=== PATIENT | female | born 1965 | race Caucasian/White ===

== ENCOUNTER 2017-08-16 17:33 | Emergency (ER) | payer BC ==
[2017-08-16 17:49] VITALS: BP 120/68
--- NOTE | 2017-08-16 17:54 | EDM.PDOC ---
ED HPI GENERAL MEDICAL PROBLEM - General Chief Complaint: Upper Extremity Injury/Pain Stated Complaint: FELL AND HURT L WRIST/ARM Time Seen by Provider: 08/16/17 17:49 Source of Information: Reports: Patient History Limitations: Reports: No Limitations - History of Present Illness INITIAL COMMENTS - FREE TEXT/NARRATIVE: 52-year-old female presents to the ED for evaluation of increasing pain dorsal hand wrist and forearm on the left side after she fell 2 days ago. She states she was walking into a convenience store and tripped over the cell which propelled her for words right in front of the door. She believes she landed more on an outstretched left hand but struck her hand dorsally on sidewall of the door. She's been babying it and taking large doses of Advil since time of injury but today the pain seems to be getting worse. His rating up the forearm towards the elbow and her shoulder. She did not strike her head or lose consciousness. She did bang up both of her knees but she consider disease minor injuries and she can walk normally.denies any injuries to her chest wall. 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 Left Arm Pain Score (Numeric/FACES): 5 - Related Data Allergies Allergy/AdvReac Type Severity Reaction Status Date / Time celecoxib [From Celebrex] Allergy Rash Verified 08/16/17 17:46 Sulfa (Sulfonamide Allergy Hives Verified 08/16/17 17:46 Antibiotics) Home Meds: Home Meds oxyCODONE HCl/Acetaminophen [Percocet 5-325 mg Tablet] 1 - 2 each PO Q4H PRN # 16 tablet 08/16/17 [Rx] Past Medical History Gastrointestinal History: Reports: Cholelithiasis, Diverticulosis - Past Surgical History GI Surgical History: Reports: Cholecystectomy, Other (See Below) Musculoskeletal Surgical History: Reports: Other (See Below) (she had open or thought arthrotomy left knee for repair of a medial meniscal tear. Subsequently had open reduction internal fixation of a fractured tibia same leg.) Social & Family History - Tobacco Use Smoking Status *Q: Never Smoker - Caffeine Use Caffeine Use: Reports: None - Recreational Drug Use Recreational Drug Use: No - Living Situation & Occupation Living situation: Reports: Occupation: Employed Review of Systems - Review of Systems Review Of Systems: See Below Constitutional: Reports: No Symptoms Eyes: Reports: No Symptoms Ears: Reports: No Symptoms Nose: Reports: No Symptoms Mouth/Throat: Reports: No Symptoms Respiratory: Reports: No Symptoms Cardiovascular: Reports: No Symptoms GI/Abdominal: Reports: No Symptoms Genitourinary: Reports: No Symptoms Musculoskeletal: Reports: Arm Pain (left side forearm and wrist pain), Hand Pain (left side) Skin: Reports: Bruising, Rash (superficial abrasions to the dorsal hand wrist and forearm) Neurological: Reports: No Symptoms Psychiatric: Reports: No Symptoms ED EXAM, GENERAL - Physical Exam Exam: See Below Exam Limited By: No Limitations General Appearance: Alert, WD/WN, No Apparent Distress Neck: Normal Inspection, Supple, Non-Tender, Full Range of Motion. No: Lymphadenopathy (L), Lymphadenopathy (R) Peripheral Pulses: 2+: Radial (L) Extremities: Other (examination was limited to the left upper extremity. She has abrasions to the dorsal aspect of her hand with bruising particularly over the third and fourth metacarpals. This extends over the dorsal wrist crease and involves the distal aspect of her forearm as well. It appears that it was slammed against the side of the door when she fell. A full fist but she has pain on extension of the wrist.she has superficial abrasions to the left lateral knee without any true joint effusions.) Neurological: Alert, Oriented, CN II-XII Intact, Normal Cognition, Normal Gait Psychiatric: Normal Affect Skin Exam: Warm, Dry, Intact, Normal Color, No Rash Course - Vital Signs Last Recorded V/S: Last Vital Signs Temp 36.5 C 08/16/17 17:46 Pulse 65 08/16/17 17:46 Resp BP 120/68 08/16/17 17:46 Pulse Ox 100 08/16/17 17:46 - Orders/Labs/Meds Orders: Active Orders 24 hr Category Date Time Status Forearm 2V Lt [CR] Stat Exams 08/16/17 17:50 Ordered Hand Comp Min 3V Lt [CR] Stat Exams 08/16/17 17:49 Ordered - Radiology Interpretation Free Text/Narrative:: 52-year-old female presents the ED for evaluation of injuries to her left dorsal hand wrist and forearm that occurred from a fall 2 days ago. She tripped and over a concrete ledge and fell outside a convenience store striking the left hand on the cement and on the edge of the door frame. She felt initially she didn't break any bones but pain is increased over the last 48 hours likely due to soft tissue swelling. Also mobility or range of motion has decreased because of pain. Particular dorsal aspect of the hand and wrist. She has full pronation supination at the elbow. She has some pain on movement of the shoulder but she has full abduction and no evidence that she has torn rotator cuff. Plan x-ray of the hand and forearm will be obtained. - Re-Assessments/Exams Free Text/Narrative Re-Assessment/Exam: 08/16/17 18:20 x-rays of the left hand and forearm have been completed and are found to be within normal limits with no evidence of any bony injuries. Injuries are to the soft tissues i.e. muscles of the forearm and tendons over the dorsal aspect of the hand and wrist. Jesús wrap applied to help immobilize the wrist. She may apply heat to the area now since its 2 days postinjury and continue anti-inflammatories as needed for pain relief.she states taking quite bad at nighttime in different with her sleep. I therefore did give her 16 tablets of Percocet 5/3/25 milligrams strength one tablet every 6 hours as needed for pain relief primarily at bedtime and on an as-needed basis.follow-up with personal physician if not completely back to normal in 12-14 days time Departure - Departure Time of Disposition: 18:25 Disposition: Home, Self-Care 01 Condition: Fair Clinical Impression: Contusion of forearm, left Qualifiers: Encounter type: initial encounter Qualified Code(s): S50.12XA - Contusion of left forearm, initial encounter Contusion of multiple sites of left hand and wrist Qualifiers: Encounter type: initial encounter Qualified Code(s): S60.222A - Contusion of left hand, initial encounter - Discharge Information Prescriptions: oxyCODONE HCl/Acetaminophen [Percocet 5-325 mg Tablet] 1 - 2 each PO Q4H PRN # 16 tablet PRN Reason: pain relief. Referrals: Myah Barraza PA-C [Primary Care Provider] - Forms: ED Department Discharge Additional Instructions: evaluation the emergent today in regards to blunt force trauma to the left dorsal hand wrist and forearm that occurred from a fall 2 days ago. There is obvious swelling of the mid forearm with bruising as well as abrasions to the dorsal hand and bruising over the wrist. X-rays of the left hand wrist and forearm were obtained and did not reveal any bony injuries or fractures. Injuries are to the surrounding muscles and tendons in the forearm and wrist area from the fall. Usually bleeding into the soft tissues occurs 48 hours after injury and then slowly starts to resolve. Usually we advised ice for the first 48 hours and after this may apply heat to the area for one half hour out of every 4 hours to help the blot body. The blood out of the soft tissues. At this time I would advise continuing either Aleve 2 tablets every 8 hours or Motrin 600 mg every 6 hours as needed for pain /inflamation relief.may use Percocet tablets usually 1 tablet with 600 mg of Motrin every 6 hours will control pain better particularly nighttime date sleep. Expect gradual improvement over the next 7-10 days as the blood comes out of the soft tissues in the inflammation settles down. Follow-up with personal physician if not completely back to normal in 10-14 days time - My Orders Last 24 Hours: My Active Orders 08/16/17 17:49 Hand Comp Min 3V Lt [CR] Stat 08/16/17 17:50 Forearm 2V Lt [CR] Stat - Assessment/Plan Last 24 Hours: My Active Orders 08/16/17 17:49 Hand Comp Min 3V Lt [CR] Stat 08/16/17 17:50 Forearm 2V Lt [CR] Stat
--- NOTE | 2017-08-17 09:10 | CR ---
Left hand: Four views of the left hand were obtained. Comparison: No previous hand study. Joint spaces are preserved. Small cysts are scattered within the carpal bones which are felt to be incidental. No acute fracture, dislocation or other bony abnormality is seen. Impression: 1. Incidental findings. Nothing acute is appreciated on left hand study. Diagnostic code #2
--- NOTE | 2017-08-17 09:10 | CR ---
Left forearm: Two views of the left forearm were obtained. No fracture or other bony abnormality is seen. Impression: 1. No abnormality is identified on two-view left forearm study. Diagnostic code #1
== END 2017-08-16 18:31 | disposition home or self-care (01) ==
LOC: JD.ED 17:33
DX: S50.12XA Contusion of left forearm, initial encounter (principal); S60.222A Contusion of left hand, initial encounter; Z88.2 Allergy status to sulfonamides; Z88.8 Allergy status to other drugs, medicaments and biological substances; W01.0XXA Fall on same level from slipping, tripping and stumbling without subsequent striking against object, initial encounter
CPT/HCPCS: 73090-26-LT; 73090-LT; 73130-26-LT; 73130-LT; 99284

== ENCOUNTER 2018-12-25 11:14 | Emergency (ER) | payer BC ==
[2018-12-25 11:31] VITALS: BP 137/70
[2018-12-25] MEDS ORDERED: Sodium Chloride 0.9% 10 ML Syringe FLUSH PRN (11:41)
[2018-12-25] MEDS ORDERED: Ketorolac 30 MG/ML SDV IVPUSH ONE (11:42)
[2018-12-25] MEDS ORDERED: diphenhydrAMINE 50 MG/ML SDV IVPUSH ONE (11:42)
[2018-12-25] MEDS ORDERED: Prochlorperazine 10 MG/2 ML SDV IVPUSH ONE (11:42)
[2018-12-25] MEDS ORDERED: HYDROmorphone 1 MG/ML Syringe IVPUSH ONE (12:47)
--- NOTE | 2018-12-25 12:54 | EDM.PDOC ---
ED HPI GENERAL MEDICAL PROBLEM - General Chief Complaint: Headache Stated Complaint: HEADACHE Time Seen by Provider: 12/25/18 11:30 Source of Information: Reports: Patient History Limitations: Reports: No Limitations - History of Present Illness INITIAL COMMENTS - FREE TEXT/NARRATIVE: The patient presents with a headache. She has a history of migraines and she woke up at 6am and this started. She is nauseated. She has no fever but she has chills. She has no photophobia. She has no chest pain or shortness of breath. She has no abdominal pain. Onset: Gradual Duration: Hour(s): Location: Reports: Head Quality: Reports: Sharp Severity: Severe Improves with: Reports: None Worsens with: Reports: None Associated Symptoms: Reports: Headaches, Nausea/Vomiting. Denies: Chest Pain, Cough, Fever/Chills, Shortness of Breath Frontal Headache Pain Score (Numeric/FACES): 10 - Related Data Allergies Allergy/AdvReac Type Severity Reaction Status Date / Time celecoxib [From Celebrex] Allergy Rash Verified 08/16/17 17:46 Sulfa (Sulfonamide Allergy Hives Verified 08/16/17 17:46 Antibiotics) sulfamethoxazole Allergy Rash Verified 12/25/18 11:31 [From Bactrim] trimethoprim [From Bactrim] Allergy Rash Verified 12/25/18 11:31 Home Meds: Home Meds Levothyroxine Sodium [Synthroid] 100 mcg PO DAILY 12/25/18 [History] Sertraline [Zoloft] 100 mg PO BEDTIME 12/25/18 [History] Topiramate [Topamax] 50 mg PO DAILY 12/25/18 [History] Topiramate [Topamax] 100 mg PO BEDTIME 12/25/18 [History] Past Medical History Gastrointestinal History: Reports: Cholelithiasis, Diverticulosis Neurological History: Reports: Migraines Psychiatric History: Reports: Depression Endocrine/Metabolic History: Reports: Hypothyroidism - Past Surgical History GI Surgical History: Reports: Cholecystectomy, Other (See Below) Musculoskeletal Surgical History: Reports: Other (See Below) Social & Family History - Tobacco Use Smoking Status *Q: Never Smoker - Caffeine Use Caffeine Use: Reports: None - Recreational Drug Use Recreational Drug Use: No - Living Situation & Occupation Living situation: Reports: Occupation: Employed ED ROS GENERAL - Review of Systems Review Of Systems: See Below Constitutional: Reports: No Symptoms HEENT: Reports: No Symptoms Respiratory: Reports: No Symptoms Cardiovascular: Reports: No Symptoms Endocrine: Reports: No Symptoms GI/Abdominal: Reports: Nausea. Denies: Abdominal Pain, Vomiting : Reports: No Symptoms Musculoskeletal: Reports: No Symptoms Neurological: Reports: Headache - Physical Exam Exam: See Below Exam Limited By: No Limitations General Appearance: Alert, No Apparent Distress Ears: Normal External Exam Nose: Normal Inspection Head Exam: Atraumatic, Normocephalic Neck: Normal Inspection, Supple, Non-Tender Respiratory/Chest: No Respiratory Distress, Lungs Clear, Normal Breath Sounds Cardiovascular: Regular Rate, Rhythm, No Edema, No Murmur GI/Abdominal: Soft, Non-Tender, No Organomegaly, No Mass Neuro Exam (Abbreviated): Alert, Oriented, No Motor/Sensory Deficits Course - Vital Signs Last Recorded V/S: Last Vital Signs Temp 98.7 F 12/25/18 11:29 Pulse 66 12/25/18 11:29 Resp 16 12/25/18 11:29 BP 137/70 12/25/18 11:29 Pulse Ox 100 12/25/18 11:29 - Orders/Labs/Meds Orders: Active Orders 24 hr Category Date Time Status Peripheral IV Care [RC] . DIRECTED Care 12/25/18 11:42 Active Sodium Chloride 0.9% [Saline Flush] Med 12/25/18 11:41 Active 10 ml FLUSH ASDIRECTED PRN Peripheral IV Insertion Adult [OM.PC] Routine Oth 12/25/18 11:41 Ordered Medication Orders Sodium Chloride (Saline Flush) 10 ml FLUSH ASDIRECTED PRN PRN Reason: Keep Vein Open Last Admin: 12/25/18 11:54 Dose: 10 ml Meds: Medications Generic Name Dose Route Start Last Admin Trade Name Freq PRN Reason Stop Dose Admin Sodium Chloride 10 ml 12/25/18 11:41 12/25/18 11:54 Saline Flush FLUSH 10 ml ASDIRECTED PRN Administration Keep Vein Open Discontinued Medications Generic Name Dose Route Start Last Admin Trade Name Freq PRN Reason Stop Dose Admin Diphenhydramine HCl 50 mg 12/25/18 11:42 12/25/18 11:56 Benadryl IVPUSH 12/25/18 11:43 50 mg ONETIME ONE Administration Hydromorphone HCl 0.5 mg 12/25/18 12:47 12/25/18 13:27 Dilaudid IVPUSH 12/25/18 12:48 0.5 mg ONETIME ONE Administration Ketorolac Tromethamine 30 mg 12/25/18 11:42 12/25/18 11:56 Toradol IVPUSH 12/25/18 11:43 30 mg ONETIME ONE Administration Prochlorperazine Edisylate 10 mg 12/25/18 11:42 12/25/18 11:56 Compazine IVPUSH 12/25/18 11:43 10 mg ONETIME ONE Administration - Re-Assessments/Exams Free Text/Narrative Re-Assessment/Exam: 12/25/18 12:55 I ordered an IV saline lock, compazine 10mg IV, toradol 30mg IV, and benadryl. She feels better but it is not gone. I will give her a dose of dilaudid. 12/25/18 13:42 She feels better now and would like to go home. I will discharge her home. Departure - Departure Time of Disposition: 13:45 Disposition: Home, Self-Care 01 Condition: Good Clinical Impression: Migraine - Discharge Information *PRESCRIPTION DRUG MONITORING PROGRAM REVIEWED*: Not Applicable *COPY OF PRESCRIPTION DRUG MONITORING REPORT IN PATIENT HASMU[facility]: Not Applicable Referrals: Myah Barraza PA-C [Primary Care Provider] - 1 Week Forms: ED Department Discharge Additional Instructions: Go home and rest. Please return if you are worse. - My Orders Last 24 Hours: My Active Orders 12/25/18 11:41 Sodium Chloride 0.9% [Saline Flush] 10 ml FLUSH ASDIRECTED PRN Peripheral IV Insertion Adult [OM.PC] Routine 12/25/18 11:42 Peripheral IV Care [RC] . DIRECTED - Assessment/Plan Last 24 Hours: My Active Orders 12/25/18 11:41 Sodium Chloride 0.9% [Saline Flush] 10 ml FLUSH ASDIRECTED PRN Peripheral IV Insertion Adult [OM.PC] Routine 12/25/18 11:42 Peripheral IV Care [RC] . DIRECTED
== END 2018-12-25 14:00 | disposition home or self-care (01) ==
LOC: JD.ED 11:14
DX: G43.909 Migraine, unspecified, not intractable, without status migrainosus (principal); F32.9 Major depressive disorder, single episode, unspecified; E03.9 Hypothyroidism, unspecified; Z79.899 Other long term (current) drug therapy; Z88.2 Allergy status to sulfonamides; Z88.1 Allergy status to other antibiotic agents
CPT/HCPCS: 96374; 96375; 99283; J0780; J1170; J1200; J1885; 99284

== ENCOUNTER 2019-08-22 10:49 | Emergency (ER) | payer BC ==
[2019-08-22 11:04] VITALS: BP 136/75; PULSE 61
[2019-08-22] MEDS ORDERED: Sodium Chloride 0.9% 10 ML Syringe FLUSH PRN (11:24)
[2019-08-22] MEDS ORDERED: Sodium Chloride 0.9% 1,000 ML IV STA (11:24)
[2019-08-22] MEDS ORDERED: Ondansetron 4 MG/2 ML SDV IVPUSH ONE (11:24)
[2019-08-22] MEDS ORDERED: HYDROmorphone 1 MG/ML Syringe IVPUSH ONE (11:25)
[2019-08-22] MEDS ORDERED: Sodium Chloride 0.9% 10 ML Syringe FLUSH ONE (11:50)
[2019-08-22] MEDS ORDERED: Iopamidol 612 MG/ML 100 ML Bottle IVPUSH ONE (11:50)
[2019-08-22] MEDS ORDERED: Diatrizoate Meglumine/Diatrizoate Sodium 37% 120 ML Bottle PO ONE (11:50)
--- NOTE | 2019-08-22 13:17 | CT ---
CT abdomen and pelvis Technique: Multiple axial sections were obtained from above the dome of the diaphragm inferiorly through the pubic symphysis. Intravenous contrast was utilized. Oral contrast was also given. Comparison: No prior CT abdomen or pelvis exam is available, previous abdominal x-ray of 12/07/16 is available. Findings: Visualized lung bases show nothing acute. Small to moderate sized hiatal hernia is noted. Liver contains no focal parenchymal abnormality. Spleen appears within normal limits. Surgical clips are seen from prior cholecystectomy. Adrenal glands show no nodule. Pancreas shows no discrete abnormality. Kidneys show symmetric contrast enhancement without hydronephrosis or mass. Aorta shows no aneurysm with mild atherosclerotic calcification. No retroperitoneal adenopathy or mesenteric abnormalities are seen. No pelvic mass or adenopathy is noted. Anastomotic sutures are noted within the sigmoid colon. Appendix is not visualized with certainty. No free fluid or inflammatory change is seen. Delayed images shows contrast within the bladder. 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 Fairly severe disc space narrowing is noted at L5-S1. Impression: 1. Nothing acute is appreciated on CT study of the abdomen and pelvis. 2. Other findings as noted above which are pre-existing and chronic. Diagnostic code #2
--- NOTE | 2019-08-22 14:11 | EDM.PDOC ---
ED HPI GENERAL MEDICAL PROBLEM - General Chief Complaint: Abdominal Pain Stated Complaint: VOMITING/ABDOMINAL PAIN Time Seen by Provider: 08/22/19 11:11 Source of Information: Reports: Patient History Limitations: Reports: No Limitations - History of Present Illness INITIAL COMMENTS - FREE TEXT/NARRATIVE: The patient presents with severe abdominal pain, nausea and vomiting. The pain started about an hour before arrival. She has no fever or chills. She has no headache, cough, chest pain or shortness of breath. She does not have a gallbladder. She still has an appendix. She did not eat any bad food and she has not been around anyone who is sick. She has no dysuria or diarrhea. She does have a history of diverticulosis. Onset: Gradual Duration: Hour(s): Location: Reports: Abdomen Quality: Reports: Sharp Severity: Severe Improves with: Reports: None Worsens with: Reports: None Associated Symptoms: Reports: Nausea/Vomiting. Denies: Chest Pain, Cough, Fever /Chills, Headaches, Shortness of Breath Upper Abdomen Pain Score (Numeric/FACES): 10 - Related Data Allergies Allergy/AdvReac Type Severity Reaction Status Date / Time celecoxib [From Celebrex] Allergy Rash Verified 08/22/19 11:04 Sulfa (Sulfonamide Allergy Hives Verified 08/22/19 11:04 Antibiotics) sulfamethoxazole Allergy Rash Verified 08/22/19 11:04 [From Bactrim] trimethoprim [From Bactrim] Allergy Rash Verified 08/22/19 11:04 Home Meds: Home Meds Levothyroxine Sodium [Synthroid] 100 mcg PO DAILY 12/25/18 [History] Sertraline [Zoloft] 100 mg PO BEDTIME 12/25/18 [History] Topiramate [Topamax] 50 mg PO DAILY 12/25/18 [History] Topiramate [Topamax] 100 mg PO BEDTIME 12/25/18 [History] Hydrocodone/Acetaminophen [Hydrocodon-Acetaminophen 5-325] 1 - 2 each PO Q6HR PRN #6 tablet 08/22/19 [Rx] Ondansetron [Zofran ODT] 4 mg PO Q6H PRN #20 tab.dis 08/22/19 [Rx] Past Medical History Gastrointestinal History: Reports: Cholelithiasis, Diverticulosis Neurological History: Reports: Migraines Psychiatric History: Reports: Depression Endocrine/Metabolic History: Reports: Hypothyroidism - Past Surgical History GI Surgical History: Reports: Cholecystectomy, Other (See Below) Musculoskeletal Surgical History: Reports: Other (See Below) Social & Family History - Tobacco Use Smoking Status *Q: Never Smoker - Caffeine Use Caffeine Use: Reports: None - Recreational Drug Use Recreational Drug Use: No - Living Situation & Occupation Living situation: Reports: Occupation: Employed ED ROS GENERAL - Review of Systems Review Of Systems: See Below Constitutional: Reports: No Symptoms HEENT: Reports: No Symptoms Respiratory: Reports: No Symptoms Cardiovascular: Reports: No Symptoms Endocrine: Reports: No Symptoms GI/Abdominal: Reports: Abdominal Pain, Nausea, Vomiting. Denies: Diarrhea : Reports: No Symptoms ED EXAM, GI/ABD - Physical Exam Exam: See Below Exam Limited By: No Limitations General Appearance: Alert, No Apparent Distress Ears: Normal External Exam Nose: Normal Inspection Head: Atraumatic, Normocephalic Neck: Normal Inspection Respiratory/Chest: No Respiratory Distress, Lungs Clear, Normal Breath Sounds Cardiovascular: Regular Rate, Rhythm, No Edema, No Murmur GI/Abdominal Exam: Soft, No Organomegaly, No Mass, Tender (Moderate tenderness to the upper abdomen) Course - Vital Signs Last Recorded V/S: Last Vital Signs Temp 98.3 F 08/22/19 11:01 Pulse 61 08/22/19 11:01 Resp 19 08/22/19 11:01 BP 136/75 08/22/19 11:01 Pulse Ox 99 08/22/19 11:01 - Orders/Labs/Meds Orders: Active Orders 24 hr Category Date Time Status Peripheral IV Care [RC] . DIRECTED Care 08/22/19 11:24 Active Sodium Chloride 0.9% [Saline Flush] Med 08/22/19 11:24 Active 10 ml FLUSH ASDIRECTED PRN ED Antiemetic Medication Reflex [OM.PC] Stat Oth 08/22/19 11:24 Ordered Peripheral IV Insertion Adult [OM.PC] Stat Oth 08/22/19 11:24 Ordered Medication Orders Sodium Chloride (Saline Flush) 10 ml FLUSH ASDIRECTED PRN PRN Reason: Keep Vein Open Last Admin: 08/22/19 11:41 Dose: 10 ml Labs: Laboratory Tests 08/22/19 08/22/19 08/22/19 Range/Units 11:40 11:40 12:13 WBC 3.35 L (3.98-10.04) K/mm3 RBC 4.24 (3.98-5.22) M/mm3 Hgb 12.5 (11.2-15.7) gm/dl Hct 38.2 (34.1-44.9) % MCV 90.1 D (79.4-94.8) fl MCH 29.5 (25.6-32.2) pg MCHC 32.7 (32.2-35.5) g/dl RDW Std Deviation 41.2 (36.4-46.3) fL Plt Count 173 L (182-369) K/mm3 MPV 9.2 L (9.4-12.3) fl Neut % (Auto) 54.3 (34.0-71.1) % Lymph % (Auto) 37.0 (19.3-51.7) % [place] % (Auto) 6.6 (4.7-12.5) % Eos % (Auto) 1.8 (0.7-5.8) Baso % (Auto) 0.3 (0.1-1.2) % Neut # (Auto) 1.82 (1.56-6.13) K/mm3 Lymph # (Auto) 1.24 (1.18-3.74) K/mm3 [place] # (Auto) 0.22 L (0.24-0.36) K/mm3 Eos # (Auto) 0.06 (0.04-0.36) K/mm3 Baso # (Auto) 0.01 (0.01-0.08) K/mm3 Sodium 143 (136-145) mEq/L Potassium 3.4 L (3.5-5.1) mEq/L Chloride 109 H (98-107) mEq/L Carbon Dioxide 23 (21-32) mEq/L Anion Gap 14.4 (5-15) BUN 13 (7-18) mg/dL Creatinine 0.9 (0.55-1.02) mg/dL Est Cr Clr Drug Dosing 68.45 mL/min Estimated GFR (MDRD) > 60 (>60) mL/min BUN/Creatinine Ratio 14.4 (14-18) Glucose 86 (74-106) mg/dL Calcium 8.8 (8.5-10.1) mg/dL Total Bilirubin 0.4 (0.2-1.0) mg/dL AST 14 L (15-37) U/L ALT 24 (14-59) U/L Alkaline Phosphatase 61 (46-116) U/L Total Protein 6.7 (6.4-8.2) g/dl Albumin 3.4 (3.4-5.0) g/dl Globulin 3.3 gm/dL Albumin/Globulin Ratio 1.0 (1-2) Lipase 200 (73-393) U/L Urine Color Yellow (Yellow) Urine Appearance Clear (Clear) Urine pH 8.5 H (5.0-8.0) Ur Specific [place] 1.015 (1.005-1.030) Urine Protein Negative (Negative) Urine Glucose (UA) Negative (Negative) Urine Ketones Negative (Negative) Urine Occult Blood Trace-intact H (Negative) Urine Nitrite Negative (Negative) Urine Bilirubin Negative (Negative) Urine Urobilinogen 0.2 (0.2-1.0) Ur Leukocyte Esterase 2+ H (Negative) Urine RBC 0-5 (0-5) /hpf Urine WBC 5-10 H (0-5) /hpf Ur Epithelial Cells 5-10 H (0-5) /hpf Urine Bacteria Few (FEW) /hpf Urine Mucus Not seen (FEW) /hpf Meds: Medications Generic Name Dose Route Start Last Admin Trade Name Freq PRN Reason Stop Dose Admin Sodium Chloride 10 ml 08/22/19 11:24 08/22/19 11:41 Saline Flush FLUSH 10 ml ASDIRECTED PRN Administration Keep Vein Open Discontinued Medications Generic Name Dose Route Start Last Admin Trade Name Freradames PRN Reason Stop Dose Admin Diatrizoate Meglum/Diatrizoate Sod 90 ml 08/22/19 11:50 08/22/19 12:54 Gastrografin 37% PO 08/22/19 11:51 90 ml ONETIME ONE Administration Hydromorphone HCl 1 mg 08/22/19 11:25 08/22/19 11:38 Dilaudid IVPUSH 08/22/19 11:26 1 mg ONETIME ONE Administration Sodium Chloride 1,000 mls @ 1,000 mls/hr 08/22/19 11:24 08/22/19 11:37 Normal Saline IV 08/22/19 12:23 1,000 mls/hr .BOLUS STA Administration Iopamidol 100 ml 08/22/19 11:50 08/22/19 12:54 Isovue-300 (61%) IVPUSH 08/22/19 11:51 100 ml ONETIME ONE Administration Ondansetron HCl 4 mg 08/22/19 11:24 08/22/19 11:38 Zofran IVPUSH 08/22/19 11:25 4 mg ONETIME ONE Administration Sodium Chloride 10 ml 08/22/19 11:50 08/22/19 12:54 Saline Flush FLUSH 08/22/19 11:51 10 ml ONETIME ONE Administration - Re-Assessments/Exams Free Text/Narrative Re-Assessment/Exam: 08/22/19 14:10 I ordered an IV NS 1L bolus, zofran 4mg IV, dilaudid IV, labs, UA and a CT of her abdomen and pelvis with IV and oral contrast. Her WBC was low at 3.35. Her K was low at 3.4. Her UA shows no UTI. Her CT shows nothing acute is appreciated on CT study of the abdomen and pelvis. Other findings are pre- existing and chronic. 08/22/19 14:25 She feels better. I will get her on some zofran and some hydrocodone for any cramps. Departure - Departure Time of Disposition: 14:30 Disposition: Home, Self-Care 01 Condition: Good Clinical Impression: Abdominal pain Qualifiers: Abdominal location: upper abdomen, unspecified Qualified Code(s): R10.10 - Upper abdominal pain, unspecified Vomiting Qualifiers: Vomiting type: unspecified Vomiting Intractability: non-intractable Nausea presence: with nausea Qualified Code(s): R11.2 - Nausea with vomiting, unspecified - Discharge Information *PRESCRIPTION DRUG MONITORING PROGRAM REVIEWED*: No *COPY OF PRESCRIPTION DRUG MONITORING REPORT IN PATIENT HASMUKH: No Prescriptions: Hydrocodone/Acetaminophen [Hydrocodon-Acetaminophen 5-325] 1 - 2 each PO Q6HR PRN #6 tablet PRN Reason: Pain Ondansetron [Zofran ODT] 4 mg PO Q6H PRN #20 tab.dis PRN Reason: Nausea\vomiting Referrals: Myah Barraza PA-C [Primary Care Provider] - 1 Week Forms: ED Department Discharge Additional Instructions: Drink plenty of fluids. Take the zofran every 6 hours as needed for nausea and vomiting. Take the hydrocodone as needed for pain. Please return if you are worse. - My Orders Last 24 Hours: My Active Orders 08/22/19 11:24 Peripheral IV Care [RC] . DIRECTED Sodium Chloride 0.9% [Saline Flush] 10 ml FLUSH ASDIRECTED PRN ED Antiemetic Medication Reflex [OM.PC] Stat Peripheral IV Insertion Adult [OM.PC] Stat - Assessment/Plan Last 24 Hours: My Active Orders 08/22/19 11:24 Peripheral IV Care [RC] . DIRECTED Sodium Chloride 0.9% [Saline Flush] 10 ml FLUSH ASDIRECTED PRN ED Antiemetic Medication Reflex [OM.PC] Stat Peripheral IV Insertion Adult [OM.PC] Stat
== END 2019-08-22 14:57 | disposition home or self-care (01) ==
LOC: JD.ED 10:49
DX: R10.10 Upper abdominal pain, unspecified (principal); R11.2 Nausea with vomiting, unspecified; E03.9 Hypothyroidism, unspecified; F32.9 Major depressive disorder, single episode, unspecified; Z88.6 Allergy status to analgesic agent; Z88.2 Allergy status to sulfonamides; Z88.1 Allergy status to other antibiotic agents; Z79.890 Hormone replacement therapy; Z79.899 Other long term (current) drug therapy
CPT/HCPCS: 36415; 74177; 80053; 81001; 83690; 85025; 96361; 96374; 96375; 99284; J1170; J2405; J7040; Q9963; Q9967